=== PATIENT | female | born 1955 | race Caucasian/White ===

== ENCOUNTER 2017-04-06 00:39 | Emergency (ER) | payer BC ==
[~2017-04-06] VITALS: Ht 162.5 cm; Wt 63.0 kg
[~2017-04-06 00:39] MED LIST: B121000 MCG/1 IM; NKHM
[2017-04-06] MEDS ORDERED: METFORMIN ER500 MG PO (00:48)
[2017-04-06 01:19] LABS: BILIRUBIN 1+ (NEGATIVE); BLOOD 3+ (NEGATIVE); CLARITY CLOUDY (CLEAR); COLOR YELLOW (YELLOW); GLUCOSE NEGATIVE (NEGATIVE); KETONE TRACE (NEGATIVE); LEUKO ESTERASE 2+ (NEGATIVE); NITRITE NEGATIVE (NEGATIVE); PH 5.5 (5.0-9.0); PROTEIN 1+ (NEGATIVE); SPECIFIC GRAVITY >= 1.030 (1.005-1.030)
[2017-04-06 01:28] LABS: EPITHELIAL CELLS 45-50
[2017-04-06 01:29] LABS: RBC TNTC rbc/hpf (0-2); YEAST TRACE
[2017-04-06 01:30] LABS: BACTERIA 1+; URINE REFLEX COMMENT YES (NO)
[2017-04-06 01:36] LABS: BASO % 0.4 % (0.0-1.0); EOS # 0.2 10*3/uL (0.0-0.4); EOS % 1.5 % (1.0-4.0); HEMATOCRIT 41.1 % (37.0-47.0); HEMOGLOBIN 13.8 g/dl (12.0-16.0); LYMPH # 1.9 10*3/uL (1.3-4.4); LYMPH % 17.5 % (27.0-41.0); MEAN CELL VOLUME 90.7 fl (81.0-99.0); MEAN CORPUSCULAR HGB 30.5 pg (27.0-31.0); MEAN CORPUSCULAR HGB CONC 33.6 g/dl (33.0-37.0); MEAN PLATELET VOLUME 10.1 fl (9.6-12.3); MONO # 0.7 10*3/uL (0.1-1.0); MONO % 6.6 % (3.0-9.0); NEUT # 8.1 10*3/uL (2.3-7.9); NEUT % 73.7 % (47.0-73.0); PLATELET COUNT AUTOMATED 191 10*3/uL (130-400); RED BLOOD COUNT 4.53 10*6/uL (4.10-5.10); RED CELL DISTRI WIDTH 12.7 % (0-14.5)
[2017-04-06 01:48] LABS: POTASSIUM 4.1 mmol/L (3.5-5.1)
[2017-04-06] MEDS ORDERED: FLOMAX0.4 MG PO (03:09)
[2017-04-06] MEDS ORDERED: ZOFRAN ODT4 MG SL (03:09)
[2017-04-06] MEDS ORDERED: NORCO 5-325 TA1 EACH PO (03:09)
== END 2017-04-06 03:32 | disposition home or self-care (01) ==
LOC: ED 00:39
PROVIDERS: Emergency Medicine Emergency Medical Services
DX: N23 Unspecified renal colic (principal); N20.1 Calculus of ureter; R19.7 Diarrhea, unspecified; E11.9 Type 2 diabetes mellitus without complications; Z88.8 Allergy status to other drugs, medicaments and biological substances; Z91.013 Allergy to seafood

== ENCOUNTER 2017-05-04 12:56 | Emergency (ER) | payer BC ==
[~2017-05-04] VITALS: Ht 193 cm; Wt 61.7 kg
[~2017-05-04 12:56] MED LIST changes: +FLOMAX0.4 MG PO; +METFORMIN ER500 MG PO; +NORCO 5-325 TA1 EACH PO; +ZOFRAN ODT4 MG SL
[2017-05-04 13:21] LABS: BILIRUBIN 1+ (NEGATIVE); BLOOD TRACE-INTACT (NEGATIVE); CLARITY SL CLOUDY (CLEAR); COLOR YELLOW (YELLOW); GLUCOSE NEGATIVE (NEGATIVE); KETONE 3+ (NEGATIVE); LEUKO ESTERASE TRACE (NEGATIVE); NITRITE NEGATIVE (NEGATIVE); PROTEIN TRACE (NEGATIVE); SPECIFIC GRAVITY >= 1.030 (1.005-1.030); UROBILINOGEN 0.2 E.U./dl (0.2-1.0)
[2017-05-04 13:30] LABS: BACTERIA 2+; URINE REFLEX COMMENT YES (NO)
[2017-05-04 13:31] LABS: BASO % 0.3 % (0.0-1.0); EOS # 0.1 10*3/uL (0.0-0.4); EOS % 0.8 % (1.0-4.0); HEMATOCRIT 40.1 % (37.0-47.0); HEMOGLOBIN 13.6 g/dl (12.0-16.0); LYMPH # 1.2 10*3/uL (1.3-4.4); MEAN CELL VOLUME 89.7 fl (81.0-99.0); MEAN CORPUSCULAR HGB 30.4 pg (27.0-31.0); MEAN CORPUSCULAR HGB CONC 33.9 g/dl (33.0-37.0); MEAN PLATELET VOLUME 10.1 fl (9.6-12.3); MONO # 0.3 10*3/uL (0.1-1.0); MONO % 4.4 % (3.0-9.0); NEUT # 6.1 10*3/uL (2.3-7.9); PLATELET COUNT AUTOMATED 165 10*3/uL (130-400); RED BLOOD COUNT 4.47 10*6/uL (4.10-5.10); RED CELL DISTRI WIDTH 12.1 % (0-14.5); WHITE BLOOD COUNT 7.7 10*3/uL (4.8-10.8)
[2017-05-04 13:46] LABS: BUN 10 mg/dl (7-24); CARBON DIOXIDE 22 mmol/L (21-32); CHLORIDE 104 mmol/L (98-107); EST GLOM FILT AFRICAN AMERICAN > 60 ml/min; GLUCOSE 155 mg/dL (65-99); POTASSIUM 3.3 mmol/L (3.5-5.1); SODIUM 139 mmol/L (136-145)
[2017-05-04] MEDS ORDERED: FLOMAX0.4 MG PO (14:14)
[2017-05-04] MEDS ORDERED: Zofran4 MG PO (14:14)
[2017-05-04] MEDS ORDERED: NORCO 5-325 TA1 EACH PO (14:14)
== END 2017-05-04 14:38 | disposition home or self-care (01) ==
LOC: ED 12:56
PROVIDERS: Emergency Medicine
DX: R10.9 Unspecified abdominal pain (principal); Z88.8 Allergy status to other drugs, medicaments and biological substances; Z91.013 Allergy to seafood

== ENCOUNTER → 2017-05-05 | Outpatient (CLI) | payer BC ==
[~2017-05-05] MED LIST changes: +Zofran4 MG PO
[2017-05-05 08:33] LABS: BILIRUBIN NEGATIVE (NEGATIVE); BLOOD NEGATIVE (NEGATIVE); CLARITY CLEAR (CLEAR); COLOR YELLOW (YELLOW); GLUCOSE NEGATIVE (NEGATIVE); KETONE NEGATIVE (NEGATIVE); LEUKO ESTERASE 1+ (NEGATIVE); NITRITE NEGATIVE (NEGATIVE); PROTEIN NEGATIVE (NEGATIVE); SPECIFIC GRAVITY <= 1.005 (1.005-1.030); UROBILINOGEN 0.2 E.U./dl (0.2-1.0)
[2017-05-05 08:42] LABS: BASO % 0.6 % (0.0-1.0); EOS # 0.2 10*3/uL (0.0-0.4); EOS % 3.4 % (1.0-4.0); HEMATOCRIT 41.8 % (37.0-47.0); HEMOGLOBIN 14.1 g/dl (12.0-16.0); LYMPH # 2.2 10*3/uL (1.3-4.4); LYMPH % 31.1 % (27.0-41.0); MEAN CELL VOLUME 90.9 fl (81.0-99.0); MEAN CORPUSCULAR HGB 30.7 pg (27.0-31.0); MEAN CORPUSCULAR HGB CONC 33.7 g/dl (33.0-37.0); MEAN PLATELET VOLUME 10.3 fl (9.6-12.3); MONO # 0.7 10*3/uL (0.1-1.0); MONO % 9.2 % (3.0-9.0); NEUT # 3.9 10*3/uL (2.3-7.9); NEUT % 55.3 % (47.0-73.0); PLATELET COUNT AUTOMATED 178 10*3/uL (130-400); RED CELL DISTRI WIDTH 12.4 % (0-14.5); WHITE BLOOD COUNT 7.1 10*3/uL (4.8-10.8)
[2017-05-05 09:04] LABS: ALBUMIN 3.8 gm/dl (3.1-4.5); ALKALINE PHOSPHATASE 54 U/L (45-117); BUN 17 mg/dl (7-24); CARBON DIOXIDE 25 mmol/L (21-32); CHLORIDE 104 mmol/L (98-107); EST GLOM FILT AFRICAN AMERICAN > 60 ml/min; FREE THYROXIN INDEX/T7 3.6 (1.5-5.4); GLUCOSE 143 mg/dL (65-99); SGOT/AST 23 IU/L (3-35); SGPT/ALT 19 U/L (12-78); SODIUM 137 mmol/L (136-145); T3 UPTAKE 35 % (31-39); THYROXINE (T4) TOTAL 10.4 ug/dl (4.8-13.9); TOTAL PROTEIN 7.4 gm/dL (6.4-8.2)
== END | disposition home or self-care (01) ==
LOC: US 07:30 → LAB 07:32
PROVIDERS: Urology
DX: N20.0 Calculus of kidney (principal)

== ENCOUNTER → 2017-05-07 | Outpatient (CLI) | payer BC | END | disposition home or self-care (01) | LOC: LAB 16:03 | PROVIDERS: Urology | DX: N20.0 Calculus of kidney (principal) ==

== ENCOUNTER → 2017-07-04 | Outpatient (CLI) | payer BC | END | disposition home or self-care (01) | LOC: US 14:53 | DX: N20.0 Calculus of kidney (principal) ==

== ENCOUNTER → 2018-06-30 | Outpatient (CLI) | payer BC | END | disposition home or self-care (01) | LOC: MAMMO 16:49 | DX: Z12.31 Encounter for screening mammogram for malignant neoplasm of breast (principal) ==

== ENCOUNTER → 2018-08-13 | Outpatient (CLI) | payer BC ==
[2018-08-13 16:50] LABS: BUN 14 mg/dl (7-24); CHLORIDE 105 mmol/L (98-107); CREATININE 0.91 mg/dL (0.55-1.02); POTASSIUM 4.2 mmol/L (3.5-5.1); SODIUM 139 mmol/L (136-145)
== END | disposition home or self-care (01) ==
LOC: LAB 15:36
PROVIDERS: Internal Medicine
DX: R05 Cough (principal); R07.89 Other chest pain; R73.03 Prediabetes

== ENCOUNTER 2023-10-02 13:05 | Emergency (ER) | payer MEDICARE ==
[~2023-10-02] VITALS: Ht 160 cm; Wt 54.4 kg
[2023-10-02 14:23] LABS: BASO % 0.3 % (0.0-1.0); HEMATOCRIT 40.7 % (37.0-47.0); LYMPH # 0.9 10*3/uL (1.3-4.4); LYMPH % 26.7 % (27.0-41.0); MEAN CELL VOLUME 93.1 fl (81.0-99.0); MEAN CORPUSCULAR HGB CONC 32.2 g/dl (33.0-37.0); MONO # 0.6 10*3/uL (0.1-1.0); MONO % 18.2 % (3.0-9.0); NEUT # 1.7 10*3/uL (2.3-7.9); NEUT % 54.8 % (47.0-73.0); PLATELET COUNT AUTOMATED 128 10*3/uL (130-400); RED BLOOD COUNT 4.37 10*6/uL (4.10-5.10); WHITE BLOOD COUNT 3.2 10*3/uL (4.8-10.8)
[2023-10-02 14:46] LABS: ALKALINE PHOSPHATASE 49 U/L (46-116); BUN 16 mg/dl (9-23); CHLORIDE 98 mmol/L (98-107); POTASSIUM 3.7 mmol/L (3.4-5.1); SGPT/ALT 16 U/L (5-49); TOTAL PROTEIN 7.1 gm/dL (6.0-8.0)
[2023-10-02 14:52] LABS: ETHYL ALCOHOL < 3.0 mg/dl (<3)
[2023-10-02] MEDS ORDERED: TAMIFLU 75MG CA75 MG PO (16:17)
[2023-10-02] MEDS ORDERED: Ondansetron4 MG PO (16:17)
== END 2023-10-02 16:29 | disposition home or self-care (01) ==
LOC: ED 13:05
PROVIDERS: Family Medicine
DX: J11.1 Influenza due to unidentified influenza virus with other respiratory manifestations (principal); R42 Dizziness and giddiness; E11.9 Type 2 diabetes mellitus without complications; R10.2 Pelvic and perineal pain; I10 Essential (primary) hypertension; E78.00 Pure hypercholesterolemia, unspecified; Z87.442 Personal history of urinary calculi; Z91.013 Allergy to seafood; Z88.8 Allergy status to other drugs, medicaments and biological substances; Z90.710 Acquired absence of both cervix and uterus; Z79.899 Other long term (current) drug therapy; F17.210 Nicotine dependence, cigarettes, uncomplicated; Z20.822 Contact with and (suspected) exposure to COVID-19

== ENCOUNTER → 2023-10-17 | Outpatient (CLI) | payer MEDICARE ==
[~2023-10-17] MED LIST changes: +Ondansetron4 MG PO; +TAMIFLU 75MG CA75 MG PO
[2023-10-17 12:19] LABS: BASO % 0.6 % (0.0-1.0); EOS % 0.3 % (1.0-4.0); HEMATOCRIT 38.4 % (37.0-47.0); LYMPH % 31.3 % (27.0-41.0); MEAN CELL VOLUME 93.7 fl (81.0-99.0); MEAN CORPUSCULAR HGB 29.5 pg (27.0-31.0); MEAN CORPUSCULAR HGB CONC 31.5 g/dl (33.0-37.0); MEAN PLATELET VOLUME 10.1 fl (9.6-12.3); MONO # 0.5 10*3/uL (0.1-1.0); MONO % 8.3 % (3.0-9.0); NEUT # 3.7 10*3/uL (2.3-7.9); NEUT % 59.3 % (47.0-73.0); PLATELET COUNT AUTOMATED 202 10*3/uL (130-400); RED CELL DISTRI WIDTH 13.2 % (0-14.5); WHITE BLOOD COUNT 6.3 10*3/uL (4.8-10.8)
[2023-10-17 12:51] LABS: VITAMIN D, 25-HYDROXY 40.8 ng/mL (30-100)
[2023-10-17 14:03] LABS: POTASSIUM 4.3 mmol/L (3.4-5.1); TOTAL PROTEIN 6.9 gm/dL (6.0-8.0)
== END | disposition home or self-care (01) ==
LOC: LAB 11:43
PROVIDERS: ATTEND Internal Medicine Nephrology
DX: I25.10 Atherosclerotic heart disease of native coronary artery without angina pectoris (principal); I10 Essential (primary) hypertension; E53.8 Deficiency of other specified B group vitamins; E11.9 Type 2 diabetes mellitus without complications; E55.9 Vitamin D deficiency, unspecified

== ENCOUNTER → 2024-08-13 | Outpatient (CLI) | payer MEDICARE ==
[~2024-08-13] MED LIST changes: +AIRSUPRA 90-810.7 GM INH; +ASPIRIN ADULT L81 M2 PO; +CLOPIDOGREL75 MG PO; +GABAPENTIN100 M2 PO; +IMDUR SA30 MG PO; +LATANOPROST2.5 ML OP; +Oscal,Oyster S500 MG PO; +ROSUVASTATIN CA40 MG PO
== END | disposition home or self-care (01) ==
LOC: RAD 03:12
PROVIDERS: ATTEND Internal Medicine
DX: Z13.820 Encounter for screening for osteoporosis (principal); S22.089A Unspecified fracture of T11-T12 vertebra, initial encounter for closed fracture; Z78.0 Asymptomatic menopausal state; X58.XXXA Exposure to other specified factors, initial encounter; Y93.89 Activity, other specified; Y92.89 Other specified places as the place of occurrence of the external cause; Y99.8 Other external cause status

== ENCOUNTER → 2024-10-11 | Outpatient (CLI) | payer MEDICARE ==
[~2024-10-11] MED LIST changes: +CALCIUM 600 MG1 EAC6 PO; +METFORMIN HYDR500 MG PO; +OMEPRAZOLE40 MG PO; +VITAMIN D350 MCG PO
== END | disposition home or self-care (01) ==
LOC: ORTHO 02:34
PROVIDERS: ATTEND Orthopaedic Surgery
DX: S72.142D Displaced intertrochanteric fracture of left femur, subsequent encounter for closed fracture with routine healing (principal); X58.XXXD Exposure to other specified factors, subsequent encounter

== ENCOUNTER → 2024-11-22 | Outpatient (CLI) | payer MEDICARE | END | disposition home or self-care (01) | LOC: ORTHO 02:04 | PROVIDERS: ATTEND Orthopaedic Surgery | DX: S72.142D Displaced intertrochanteric fracture of left femur, subsequent encounter for closed fracture with routine healing (principal); X58.XXXD Exposure to other specified factors, subsequent encounter ==

== ENCOUNTER → 2024-12-27 | Outpatient (CLI) | payer MEDICARE | END | disposition home or self-care (01) | LOC: ORTHO 02:00 | PROVIDERS: ATTEND Orthopaedic Surgery | DX: M17.0 Bilateral primary osteoarthritis of knee (principal) ==

== ENCOUNTER → 2025-03-02 | Outpatient (CLI) | payer MEDICARE | END | disposition home or self-care (01) | LOC: LAB 08:59 → MAMMO 09:30 | PROVIDERS: ATTEND Internal Medicine | DX: Z12.31 Encounter for screening mammogram for malignant neoplasm of breast (principal); R92.323 Mammographic fibroglandular density, bilateral breasts; Z11.59 Encounter for screening for other viral diseases; E11.40 Type 2 diabetes mellitus with diabetic neuropathy, unspecified ==